=== PATIENT | female | born 1995 | race Caucasian/White ===

== ENCOUNTER 2017-04-14 20:35 | Emergency (ER) | payer BC ==
[~2017-04-14] VITALS: Ht 160 cm; Wt 59.6 kg
[~2017-04-14 20:35] MED LIST: CEPH500C PO; IUD'IUD INT UTER; OXYC-90 PO
[2017-04-14 20:49] VITALS: BP 122/68; PULSE 81; TEMP 36.8; O2SAT 99; Ht 160 cm; Wt 59.6 kg
[2017-04-14] MEDS ORDERED: GELATIN SPONGE 12-7MM ONE (21:44)
--- NOTE | 2017-04-14 21:58 | EMERGENCY ROOM VISIT NOTE ---
History First contact with patient: 21:01 Chief Complaint: WOUND RECHECK Stated Complaint: BANDAGE CHANGE FROM 04/13 VISIT Nursing Triage Summary: Patient reports that she is here for dressing change on left 4th digit post partial amputation History of Present Illness The patient is a 22 year old female who presents to the Emergency Room for a recheck of a wound that she sustained yesterday. The patient accidentally cut the distal aspect of her left fourth finger off when she was loading her furnace with wood. It is more painful today. She denies any fever symptoms. She has not unbandaged the wound. She was told to come back today for a recheck. Review of Systems 6 system review performed and negative unless otherwise noted Past Medical/Surgical History Otherwise healthy Social History Smoking Status: Never Smoker Current/Historical Medications Scheduled Cephalexin Monohydrate (Keflex), 500 MG PO QID Iud's (Paragard Intrauterine Ladler), 1 EA INT UTER UD Scheduled PRN Oxycodone Ir (Roxicodone Ir), 1-2 TAB PO Q4H PRN for Pain Physical Exam Vital Signs Date Time Temp Pulse Resp B/P (MAP) Pulse Ox O2 Delivery O2 Flow Rate FiO2 04/14/17 20:49 36.8 81 18 122/68 99 Room Air Physical Exam VITALS: Vitals are noted on the nurse's note and reviewed by myself. Vital signs stable. GENERAL: 22-year-old female, in no acute distress, nondiaphoretic, well- developed well-nourished. MUSCULOSKELETAL: LEFT FOURTH FINGER: Avulsion noted to the left fourth finger distal to the DIP joint. No surrounding erythema. No active bleeding. No bone is visible. No significant swelling. NEURO: Patient was alert and oriented to person place and time. Normal sensation to touch. No focal neurological deficits. Medical Decision & Procedures ED Course The patient was seen and examined The wound was thoroughly cleansed The wound was redressed. The patient tolerated the procedure well. She was discharged in good condition Medical Decision Differential diagnosis: Wound infection, healing wound, osteomyelitis This patient is a 22-year-old female that presents to the emergency department for a recheck of a wound to her left fourth finger. The patient had a partial amputation of the tuft. On exam, the wound appears to be healing well. There is no active bleeding. No surrounding erythema or swelling to suggest infection. The wound was thoroughly cleansed. It was redressed with Neosporin , Adaptic and a bulky dressing. She tolerated the procedure well. She will need to continue her antibiotics, and follow up as instructed early next week with orthopedics. She was comfortable with this plan. She will return with any new or worsening symptoms. This chart was completed in part utilizing [employer] Speech Voice Recognition software. Attempts were made to minimize the grammatical errors, random word insertions, pronoun errors and incomplete sentences. Any formal questions or concerns about the content, text or information contained within the body of this dictation should be directly addressed to the provider for clarification. Impression Primary Impression: Encounter for wound re-check Departure Information Dispostion Home / Self-Care Condition GOOD Referrals No Doctor, Assigned (PCP) Patient Instructions [facility] Additional Instructions Please try not to get the area wet. Leave the bandage in place. Please follow- up with Dr. Felix as planned on Saturday. Continue antibiotics as prescribed Oxycodone Immediate Release (OxyIR) 5mg: Take 1-2 pills every four hours for pain. Avoid alcohol, operating machinery or dangerous equipment, working on ladders or roofs, DRIVING, or situations where being under the influence may be dangerous. It is recommended to use an [id number] stool softener such as Colace, 100mg twice daily while taking this medication to avoid constipation. Please do not hesitate to return to the emergency department with any new, worsening or concerning symptoms; especially, increased pain, swelling, redness or fever
== END 2017-04-14 22:05 | disposition home or self-care (01) ==
LOC: C.EDB 20:36 → C.EDD 22:05
DX: Z48.00 Encounter for change or removal of nonsurgical wound dressing (principal); S68.625A Partial traumatic transphalangeal amputation of left ring finger, initial encounter; W23.1XXA Caught, crushed, jammed, or pinched between stationary objects, initial encounter; Y92.89 Other specified places as the place of occurrence of the external cause